=== PATIENT | female | born 1995 ===

== ENCOUNTER 2025-06-20 12:07 | Emergency (ER) | payer SELFPAY ==
[~2025-06-20] VITALS: Ht 152.4 cm; Wt 91.0 kg
[2025-06-20 12:11] VITALS: O2SAT 100
[2025-06-20 12:27] VITALS: BP 124/77; PULSE 98; RESP 18; TEMP 36.7; O2SAT 99
[2025-06-20 13:23] LABS: CLARITY URINE CLEAR (CLEAR); COLOR URINE YELLOW (YELLOW); GLUCOSE URINE NEGATIVE (NEGATIVE); KETONES URINE TRACE (NEGATIVE); LEUKOCYTE ESTERASE URINE NEGATIVE (NEGATIVE); NITRITE URINE NEGATIVE (NEGATIVE); OCCULT BLOOD URINE 3+ (NEGATIVE); PH URINE 5.5 (4.5-8.0); PROTEIN URINE TRACE (NEGATIVE); SPECIFIC GRAVITY URINE 1.022 (1.005-1.030); UROBILINOGEN URINE 0.2 E.U./dL (0.2-1.0)
[2025-06-20] MEDS: ACETAMINOPHEN 500MG TABLET PO ONE (13:30)
[2025-06-20 13:41] LABS: BACTERIA URINE FEW; RBC URINE 0-2 /hpf (0-2); SQUAMOUS EPITHELIAL CELL URINE 1+ /lpf (RARE/1+); WBC URINE 0-2 /hpf (0-2); YEAST URINE NONE SEEN
[2025-06-20 14:27] LABS: BASOPHILS % 2.1 % (0.0-2.0); EOSINOPHILS % 2.0 % (0.0-5.0); HEMATOCRIT. 40.8 % (36.0-48.0); HEMOGLOBIN. 13.1 g/dL (12.0-16.0); LYMPHOCYTES % 41.6 % (20.0-50.0); MEAN PLATELET VOLUME 7.9 fl (7.4-10.4); MONOCYTES % 8.6 % (2.0-8.0); NEUTROPHILS % 45.7 % (40.0-76.0); PLATELET 398 x1000/uL (130-400); RED BLOOD CELL COUNT 4.37 mill/uL (4.2-5.4); RED CELL DISTRIBUTION WIDTH 15.6 % (11.6-14.6)
[2025-06-20 14:45] LABS: CREATININE 0.6 mg/dL (0.6-1.0)
[2025-06-20 14:46] LABS: B-HCG QUANTITATIVE 42 mIU/mL (<6); UREA NITROGEN BLOOD 6 mg/dL (9-23)
[2025-06-20 14:47] LABS: ASPARTATE AMINOTRANSFERASE 22 IU/L (<34)
[2025-06-20 14:48] LABS: BILIRUBIN DIRECT 0.1 mg/dL (<=3.0); BILIRUBIN TOTAL 0.6 mg/dL (0.1-1.0); PROTEIN TOTAL 7.3 g/dL (6.0-8.3)
== END 2025-06-20 16:20 | disposition home or self-care (01) ==
LOC: ER 12:07
DX: O03.9 Complete or unspecified spontaneous abortion without complication (principal); Z59.00 Homelessness unspecified; Z98.890 Other specified postprocedural states; Z88.0 Allergy status to penicillin; Z3A.01 Less than 8 weeks gestation of pregnancy
CPT/HCPCS: 36415; 76801; 80048; 80076; 81003; 81025; 84702; 85025; 86850; 86900; 99284